=== PATIENT | male | born 1990 | race Caucasian/White ===

== ENCOUNTER 2018-12-29 09:17 | Inpatient (IN) | payer OTHER ==
[~2018-12-29] VITALS: Ht 182.9 cm; Wt 68.2 kg
[2018-12-29] MEDS ORDERED: HYDROCODON-ACE1 EA10 PO (09:29)
--- NOTE | 2018-12-29 10:44 | MORECARE ---
CASE MANAGEMENT DISCHARGE SUMMARY PATIENT: AURELIANO NAVARRO UNIT: [id number] ADM DATE: 12/29/18 AGE: 28 : [birth year] SEX: M ROOM/BED: D.2231 AUTHOR: JENIFFER LEE PHYSICIAN: REFERRING PHYSICIAN: LOWELL RUSH MD DATE OF SERVICE: 12/29/18 Discharge Plan Patient Name: AURELIANO NAVARRO [facility] : 1990 Planned Disposition: Home Anticipated Discharge Date: 12/31/18 Discharge Date: Expected LOS: 2 Initial Reviewer: [email or web address] Initial Review Date: 12/29/2018 Generated: 12/29/18 11:44 am DCPIA - Discharge Planning Initial Assessment Updated by [email or web address]: Lory Carrera on 12/29/18 10:40 am * Is the patient Alert and Oriented? Yes * How many steps to enter\exit or inside your home? * PCP does not have a pcp * Pharmacy [facility] in [place] * Preadmission Environment Home with Family * ADLs Independent * Equipment None * List name and contact numbers for known caregivers / representatives who currently or will assist patient after discharge: Ruth Navarro - - [phone] * Verbal permission to speak to the caregivers and representatives has been obtained from the patient. Yes * Community resources currently utilized None * Additional services required to return to the preadmission environment? No * Can the patient safely return to the preadmission environment? Yes * Has this patient been hospitalized within the prior 30 days at any hospital? No Patient Name: AURELIANO NAVARRO Page 31641 at 1044 All edits/amendments must be made on the electronic document DICTATION DATE: 12/29/18 1044 HUMAN RESOURCES TEMP: FIORDALIZA 12/29/18 1044 RPT#: [id number] DC DATE: STATUS: ADM IN [facility] [address] [place] [address] END OF REPORT
--- NOTE | 2018-12-29 11:09 | MORECARE ---
CASE MANAGEMENT DISCHARGE SUMMARY PATIENT: AURELIANO NAVARRO UNIT: [id number] ADM DATE: 12/29/18 AGE: 28 : [birth year] SEX: M ROOM/BED: D.2231 AUTHOR: JENIFFER LEE PHYSICIAN: REFERRING PHYSICIAN: LOWELL RUSH MD DATE OF SERVICE: 12/29/18 Discharge Plan Patient Name: AURELIANO NAVARRO Facility: [facility]:[place] : 1990 Planned Disposition: Home Anticipated Discharge Date: 12/31/18 Discharge Date: Expected LOS: 2 Initial Reviewer: [email or web address] Initial Review Date: 12/29/2018 Generated: 12/29/18 12:08 pm Comments DCP- Discharge Planning Updated by [email or web address]: Lory Carrera on 12/29/18 10:[address] Patient Name: AURELIANO NAVARRO Admission Status: ER Accout number: [id number] Admission Date: 12-29-2018 : 1990 Admission Diagnosis: Attending: ASIA RUSH Current LOS: 1 Anticipated DC Date: 12-31-2018 Planned Disposition: Home with . Primary Insurance: UNINSURED DISCOUNT PLAN Discharge Planning Comments: CM met with patient to complete initial dc planning assessment. CM educated patient on the CM role and verbal consent given by patient to complete assessment. CM verified patient's address, phone number, and emergency contact phone numbers. Patient lives at home with his and 8 mth old son. At discharge patient plans to return home and feels this is a safe discharge. CM discussed availability of home health, rehab services, and medical equipment. Patient denied known discharge needs at this time. Patient reports his brother will transport him home at time of discharge. CM will continue to follow and will assist as needed with dc plans/needs. Aquatics Instructor: Lory Carrera RN, [facility] DCPIA - Discharge Planning Initial Assessment Updated by [email or web address]: Lory Carrera on 12/29/18 10:40 am * Is the patient Alert and Oriented? Yes * How many steps to enter\exit or inside your home? * PCP does not have a pcp * Pharmacy [facility] * Preadmission Environment Home with Family * ADLs Independent * Equipment None * List name and contact numbers for known caregivers / representatives who currently or will assist patient after discharge: Ruth Navarro - - [phone] * Verbal permission to speak to the caregivers and representatives has been obtained from the patient. Yes * Community resources currently utilized None * Additional services required to return to the preadmission environment? No * Can the patient safely return to the preadmission environment? Yes * Has this patient been hospitalized within the prior 30 days at any hospital? No Last DP export: 12/29/18 9:44 a Patient Name: AURELIANO NAVARRO Page 32546 at 1109 All edits/amendments must be made on the electronic document DICTATION DATE: 12/29/181107 REGISTERED MASSAGE THERAPIST: FIORDALIZA 12/29/181107 RPT#: [id number] [place] DATE: STATUS: ADM IN [facility] [address] [place] [address] END OF REPORT
[2018-12-29 12:44] VITALS: BP 117/74; BMI 20.4
[2018-12-29 15:01] VITALS: Ht 182.9 cm; Wt 68.2 kg
--- NOTE | 2018-12-29 17:30 | NUR ---
SITTING UP IN BED TALKING TO . ALERT AND ORIENTED X4. IV LOCATATED IN RIGHT AC, SALINE LOCK AND DRESSING INTACT. MATHEW CATH IN PLACE WITH 200 ML OF MARTY URINE. STATES PAIN LEVEL IS 10/10 IN THE LT FLANK. PLAN TO GIVE PRN PAIN MED. BED IN THE LOWEST POSITION AND CALL LIGHT WITH IN REACH. CONTINUE WITH PLAN OF CARE.
[2018-12-29 17:33] VITALS: BP 104/56
[2018-12-29 21:14] VITALS: BP 97/53
[2018-12-30 01:27] VITALS: BP 101/57
--- NOTE | 2018-12-30 02:52 | NUR ---
LAYING IN BED SLEEPING. SHOWS NO SIGNS OF DISTRESS. BED IN THE LOWEST POSITION AND CL WITH IN REACH. WILL CONTINUE TO MONITOR.
[2018-12-30 05:05] VITALS: BP 124/60
[2018-12-30 09:10] VITALS: BP 94/65
[2018-12-30 12:03] VITALS: BP 101/56
[2018-12-30 16:39] VITALS: BP 99/61
--- NOTE | 2018-12-30 18:51 | NUR ---
PT RESTING IN BED, ALERT AND ORIENTED. NO C/O PAIN. NO S/S OF ACUTE DISTRESS NOTED. PT DENIES ANY NEEDS AT THIS TIME. CALL LIGHT IN REACH. WILL CONTINUE TO MONITOR.
--- NOTE | 2018-12-30 19:20 | NUR ---
ALERT AND ORIENT X4. IV SITE TO THE LT AC, SALINE LOCK AND DRESSING INTACT. MATHEW IN PLACE WITH CLEAR/ YELLOW URINE. AT THE BEDSIDE. COMPLAINING OF HEADACHE STATING THAT HE NEEDED TO SMOKE. OFFERED PRN PAIN MED AND NICOTINE PATCH, REFUSED. CL WITH IN REACH AND BED IN THE LOWEST POSITION. CONTINUE WITH PLAN OF CARE.
[2018-12-30 20:33] VITALS: BP 108/47
[2018-12-31 00:47] VITALS: BP 151/74
--- NOTE | 2018-12-31 01:40 | NUR ---
RESISTANCE WHEN FLUSHING IV. DC IV TO THE LT AC, CATH INTACT. RESITED 20G IV TO THE RT FOREARM, SALINE LOCK. CONTINUE [facility] PLAN OF CARE.
[2018-12-31 05:10] VITALS: BP 148/64
--- NOTE | 2018-12-31 05:30 | NUR ---
VOICED CONCERN ON MISSING [facility]ET[facility] DUE TO SURGERY THIS MORNIG. NOTIFIED [facility]. ATTEMPTED TO FAX APPROPRIATE PAPERS TO [facility] X2. WILL TRY AGAIN DURING BUSINESS HOURS AND PASS INFO TO ONCOMING SHIFT. COPY OF PAPERS PLACED IN CHART.
--- NOTE | 2018-12-31 07:25 | NUR ---
PT RESTING IN BED, ALERT AND ORIENTED. AT BEDSIDE. NO C/O PAIN. NO S/S OF ACUTE DISTRESS NOTED. IV TO RIGHT FOREARM, SL. SITE PATENT WITHOUT REDNESS OR SWELLING. PT DENIES ANYTHING FURTHER AT THIS TIME. CALL LIGHT IN REACH. WILL CONTINUE TO MONITOR.
--- NOTE | 2018-12-31 07:55 | NUR ---
BILATERAL ARMS DOWN TO SIDE, ROSSANA.
--- NOTE | 2018-12-31 08:33 | NUR ---
OPA IN AIRWAY ON ADMIT
[2018-12-31 09:14] VITALS: BP 118/67
--- NOTE | 2018-12-31 09:20 | OP ---
PATIENT NAME: AURELIANO SAINI MEDICAL RECORD: [id number] :[birth year] LOCATION:D.MS [place]2231 ADMISSION DATE:12/29/18 SURGEON: MOLINA RUSH MD DATE OF OPERATION: 12/29/2018 SURGEON: Molina Rush MD ANESTHESIA: TIVA by Rita Caban CRNA. DIAGNOSIS: Left distal ureteral stone, 4 mm. SPECIMEN: Left ureteral stone. PROCEDURE: Cystoscopy, left retrograde pyelogram, left ureteroscopy and stone extraction, left ureteral stent insertion 6-Palauan x 24 cm with string attached. FINDINGS: Radiodense left distal ureteral 4 mm stone. BLOOD LOSS: None. CLINICAL HISTORY: This is a 28-year-old male, who presented to the [facility] with left flank pain. He has never had kidney stones previously. A CT scan showed a left distal ureteral stone causing proximal hydronephrosis. He was transferred from [facility] to our hospital for management of the stone. I observed him for a couple of days with Flomax expecting him to pass the stone, but he did not pass it. He comes now to have the stone removed by ureteroscopy. He is not allergic to any medications. He was given Ancef carton forming machine tender to the OR. DESCRIPTION OF PROCEDURE: The patient was given IV sedation. We attempted to perform fluoroscopy, but we could not definitely see an obvious stone. He has a lot of constipation also, which makes the visualization difficult. We then placed in the lithotomy position and prepped and draped him. The 21-Palauan cystoscope was used. There was no penile stricture. There was no prostatic obstruction. No bladder tumors were seen. He has single ureteral orifices bilaterally. There was edema of the left ureteral orifice from the nearby stone. I placed an open-ended ureteral catheter into the left ureteral orifice. A retrograde pyelogram was performed and this showed that the stone was in the intramural portion of the ureter. There was hydronephrosis proximal to the stone. A Sensor wire was then placed through the lumen of the ureteral catheter into the renal pelvis. The ureteral catheter was then removed, leaving the Sensor wire in place. Over the wire, we inserted a 21-Palauan x 4-cm ureteral dilation balloon. The balloon was then inflated to 12 atmospheres of pressure for a few seconds and then deflated and removed entirely, leaving the wire in place. We then removed the cystoscope and using a semi-rigid ureteroscope, we identified the stone. The stone was trapped within a 0-tip 1.9-Palauan basket. The stone was then removed entirely. It was sent to pathology for stone analysis. Repeat ureteroscopy showed that there were no further stones in the ureter. We then switched back to the cystoscope. The wire was backloaded onto the cystoscope. Over the wire, we inserted a 6-Palauan x 24 cm ureteral stent. Once the stent was in correct position, the wire was withdrawn entirely. The distal end of the stent was pushed into the bladder using a pusher. The bladder was then emptied through the cystoscope sheath and the scope was removed. The string on the distal end of the stent remains. It was tied to itself in a knot and cut shorter. The patient will be discharged home today. I will see him in followup next week to have the stent removed. OPERATIVE REPORT [id number] AURELIANO SAINI TRANSINT:[id number] Voice Confirmation ID: [id number] DOCUMENT ID: [id number] MOLINA RUSH MD at 0920 CC: [id number] DICTATION DATE: 12/31/18 0835 RECEPTIONIST SCHEDULER: 12/31/18 0847 [facility] IN [facility] [address] [place] [address]
[2018-12-31] MEDS ORDERED: FLOMAX0.4 MG PO (09:43)
[2018-12-31] MEDS ORDERED: HYDROCODON-ACE1 EAC7 PO (09:44)
--- NOTE | 2018-12-31 11:58 | MORECARE ---
CASE MANAGEMENT DISCHARGE SUMMARY PATIENT: AURELIANO NAVARRO UNIT: [id number] ADM DATE: 12/29/18 AGE: 28 : [birth year] SEX: M ROOM/BED: D.2231 AUTHOR: JENIFFER LEE PHYSICIAN: REFERRING PHYSICIAN: LOWELL RUSH MD DATE OF SERVICE: 12/31/18 Discharge Plan Patient Name: AURELIANO NAVARRO Facility: [facility]:[place] : 1990 Planned Disposition: Home Anticipated Discharge Date: 12/31/18 Discharge Date: Expected LOS: 2 Initial Reviewer: [email or web address] Initial Review Date: 12/29/2018 Generated: 12/31/18 12:58 pm Comments DCP- Discharge Planning Updated by [email or web address]: Patricia Leong on 12/31/18 10:[address] Received discharge orders. I was informed by the nurse that patient is refusing to go home. I met with patient and his girlfriend in the room and informed them that this is an outpatient procedure and he has discharge orders for today. Patient states Dr. Rush said he could stay here 24 hours after surgery and I informed him again that Dr. Rush has written order for him to discharge today. He and his girlfriend states they are not leaving because they have dogs at home and want to make sure he's not hurting as much when he leaves. I explained to him that if he does have insurance that he does not meet criteria to stay in the hospital and his stay may not be paid by his insurance company. They both state they understand. I informed his nurse (Yue) that he refuses discharge today. CM will continue to follow and assist with discharge planning/needs. DCP- Discharge Planning Updated by [email or web address]: Lory Carrera on 12/29/18 10:[address] Patient Name: AURELIANO NAVARRO Admission Status: ER Accout number: [id number] Admission Date: 12-29-2018 : 1990 Admission Diagnosis: Attending: ASIA RUSH Current LOS: 1 Anticipated DC Date: 12-31-2018 Planned Disposition: Home with . Primary Insurance: UNINSURED DISCOUNT PLAN Discharge Planning Comments: CM met with patient to complete initial dc planning assessment. CM educated patient on the CM role and verbal consent given by patient to complete assessment. CM verified patient's address, phone number, and emergency contact phone numbers. Patient lives at home with his and 8 mth old son. At discharge patient plans to return home and feels this is a safe discharge. CM discussed availability of home health, rehab services, and medical equipment. Patient denied known discharge needs at this time. Patient reports his brother will transport him home at time of discharge. CM will continue to follow and will assist as needed with dc plans/needs. Campus Security Officer: Lory Carrera RN, [facility] DCPIA - Discharge Planning Initial Assessment Updated by [email or web address]: Lory Carrera on 12/29/18 10:40 am * Is the patient Alert and Oriented? Yes * How many steps to enter\exit or inside your home? * PCP does not have a pcp * Pharmacy [facility] in [place] * Preadmission Environment Home with Family * ADLs Independent * Equipment None * List name and contact numbers for known caregivers / representatives who currently or will assist patient after discharge: Ruth Navarro - [facility] - [phone] * Verbal permission to speak to the caregivers and representatives has been obtained from the patient. Yes * Community resources currently utilized None * Additional services required to return to the preadmission environment? No * Can the patient safely return to the preadmission environment? Yes * Has this patient been hospitalized within the prior 30 days at any hospital? No Last DP export: 12/29/18 10:09 a Patient Name: AURELIANO NAVARRO Page [phone] at 1158 All edits/amendments must be made on the electronic document DICTATION DATE: 12/31/18 1158 WEB DESIGN SPECIALIST: FIORDALIZA 12/31/18 1158 RPT#: [id number] DC DATE: STATUS: ADM IN [facility] [address] [place] [address] END OF REPORT
--- NOTE | 2018-12-31 12:20 | MORECARE ---
CASE MANAGEMENT DISCHARGE SUMMARY PATIENT: AURELIANO NAVARRO UNIT: [id number] ADM DATE: 12/29/18 AGE: 28 : [birth year] SEX: M ROOM/BED: D.2231 AUTHOR: ROSADOC PHYSICIAN: REFERRING PHYSICIAN: LOWELL RUSH MD DATE OF SERVICE: 12/31/18 Discharge Plan Patient Name: AURELIANO NAVARRO Facility: [facility]:[place] : 1990 Planned Disposition: Home Anticipated Discharge Date: 12/31/18 Discharge Date: Expected LOS: 2 Initial Reviewer: [email or web address] Initial Review Date: 12/29/2018 Generated: 12/31/18 1:19 pm Comments DCP- Discharge Planning Updated by [email or web address]: Patricia Leong on 12/31/18 11:[address] I spoke with Dr. Rush and he states patient can discharge home today. I spoke with the patient and he states his friend does not have any gas money to get him home. I priced for a taxi for 2 people and it will be 50 dollars. I have asked Beverly for approval to go to [address] [place] [address] in [place]. CM will continue to follow and assist with discharge planning/needs. DCP- Discharge Planning Updated by [email or web address]: Patricia Leong on 12/31/18 10:[address] Received discharge orders. I was informed by the nurse that patient is refusing to go home. I met with patient and his girlfriend in the room and informed them that this is an outpatient procedure and he has discharge orders for today. Patient states Dr. Rush said he could stay here 24 hours after surgery and I informed him again that Dr. Rush has written order for him to discharge today. He and his girlfriend states they are not leaving because they have dogs at home and want to make sure he's not hurting as much when he leaves. I explained to him that if he does have insurance that he does not meet criteria to stay in the hospital and his stay may not be paid by his insurance company. They both state they understand. I informed his nurse (Yue) that he refuses discharge today. CM will continue to follow and assist with discharge planning/needs. DCP- Discharge Planning Updated by [email or web address]: Lory Carrera on 12/29/18 10:[address] Patient Name: AURELIANO NAVARRO Admission Status: ER Accout number: [id number] Admission Date: 12-29-2018 : 1990 Admission Diagnosis: Attending: ASIA RUSH Current LOS: 1 Anticipated DC Date: 12-31-2018 Planned Disposition: Home with . Primary Insurance: UNINSURED DISCOUNT PLAN Discharge Planning Comments: CM met with patient to complete initial dc planning assessment. CM educated patient on the CM role and verbal consent given by patient to complete assessment. CM verified patient's address, phone number, and emergency contact phone numbers. Patient lives at home with his and 8 mth old son. At discharge patient plans to return home and feels this is a safe discharge. CM discussed availability of home health, rehab services, and medical equipment. Patient denied known discharge needs at this time. Patient reports his brother will transport him home at time of discharge. CM will continue to follow and will assist as needed with dc plans/needs. Belt Maker Helper: Lory Carrera RN, [facility] DCPIA - Discharge Planning Initial Assessment Updated by [email or web address]: Lory Carrera on 12/29/18 10:40 am * Is the patient Alert and Oriented? Yes * How many steps to enter\exit or inside your home? * PCP does not have a pcp * Pharmacy [facility] * Preadmission Environment Home with Family * ADLs Independent * Equipment None * List name and contact numbers for known caregivers / representatives who currently or will assist patient after discharge: Ruth Navarro - - [phone] * Verbal permission to speak to the caregivers and representatives has been obtained from the patient. Yes * Community resources currently utilized None * Additional services required to return to the preadmission environment? No * Can the patient safely return to the preadmission environment? Yes * Has this patient been hospitalized within the prior 30 days at any hospital? No Last DP export: 12/31/18 10:58 a Patient Name: AURELIANO NAVARRO Page 58750 at 1220 All edits/amendments must be made on the electronic document DICTATION DATE: 12/31/18 1219 OFFICE PROFESSIONAL: FIORDALIZA 12/31/18 1219 RPT#: [id number] DC DATE: STATUS: ADM IN [facility] [address] [place] [address] END OF REPORT
[2018-12-31 13:08] VITALS: BP 98/52
--- NOTE | 2018-12-31 14:13 | NUR ---
PT DISCHARGED HOME WITH IN TAXI VIA WHEELCHAIR. DISCONTINUED IV, CATHETER TIP INTACT. WENT OVER DISCHARGE INSTRUCTIONS WITH PT AND SPOUSE, PT VERBALIZED UNDERSTANDING. PT DENIES ANY NEEDS.
--- NOTE | 2019-01-01 16:50 | MORECARE ---
CASE MANAGEMENT DISCHARGE SUMMARY PATIENT: AURELIANO NAVARRO UNIT: [id number] ADM DATE: 12/29/18 AGE: 28 : [birth year] SEX: M ROOM/BED: D.2231 AUTHOR: ROSADOC PHYSICIAN: REFERRING PHYSICIAN: LOWELL RUSH MD DATE OF SERVICE: 01/01/19 Discharge Plan Patient Name: AURELIANO NAVARRO Facility: [facility]:[place] : 1990 Planned Disposition: Home Anticipated Discharge Date: 12/31/18 Discharge Date: 12/31/2018 Expected LOS: 2 Initial Reviewer: [email or web address] Initial Review Date: 12/29/2018 Generated: 01/01/19 5:50 pm Comments DCP- Discharge Planning Updated by [email or web address]: Patricia Leong on 12/31/18 11:[address] I spoke with Dr. Rush and he states patient can discharge home today. I spoke with the patient and he states his friend does not have any gas money to get him home. I priced for a taxi for 2 people and it will be 50 dollars. I have asked Beverly for approval to go to [address] [place] [address] in [place]. CM will continue to follow and assist with discharge planning/needs. DCP- Discharge Planning Updated by [email or web address]: Patricia Leong on 12/31/18 10:[address] Received discharge orders. I was informed by the nurse that patient is refusing to go home. I met with patient and his girlfriend in the room and informed them that this is an outpatient procedure and he has discharge orders for today. Patient states Dr. Rush said he could stay here 24 hours after surgery and I informed him again that Dr. Rush has written order for him to discharge today. He and his girlfriend states they are not leaving because they have dogs at home and want to make sure he's not hurting as much when he leaves. I explained to him that if he does have insurance that he does not meet criteria to stay in the hospital and his stay may not be paid by his insurance company. They both state they understand. I informed his nurse (Yue) that he refuses discharge today. CM will continue to follow and assist with discharge planning/needs. DCP- Discharge Planning Updated by [email or web address]: Lory Carrera on 12/29/18 10:[address] Patient Name: AURELIANO NAVARRO Admission Status: ER Accout number: [id number] Admission Date: 12-29-2018 : 1990 Admission Diagnosis: Attending: ASIA RUSH Current LOS: 1 Anticipated DC Date: 12-31-2018 Planned Disposition: Home with . Primary Insurance: UNINSURED DISCOUNT PLAN Discharge Planning Comments: CM met with patient to complete initial dc planning assessment. CM educated patient on the CM role and verbal consent given by patient to complete assessment. CM verified patient's address, phone number, and emergency contact phone numbers. Patient lives at home with his and 8 mth old son. At discharge patient plans to return home and feels this is a safe discharge. CM discussed availability of home health, rehab services, and medical equipment. Patient denied known discharge needs at this time. Patient reports his brother will transport him home at time of discharge. CM will continue to follow and will assist as needed with dc plans/needs. Youth Accommodation Support Worker: Lory Carrera RN, [facility] DCPIA - Discharge Planning Initial Assessment Updated by [email or web address]: Lory Carrera on 12/29/18 10:40 am * Is the patient Alert and Oriented? Yes * How many steps to enter\exit or inside your home? * PCP does not have a pcp * Pharmacy [facility] * Preadmission Environment Home with Family * ADLs Independent * Equipment None * List name and contact numbers for known caregivers / representatives who currently or will assist patient after discharge: Ruth Navarro - - [phone] * Verbal permission to speak to the caregivers and representatives has been obtained from the patient. Yes * Community resources currently utilized None * Additional services required to return to the preadmission environment? No * Can the patient safely return to the preadmission environment? Yes * Has this patient been hospitalized within the prior 30 days at any hospital? No Last DP export: 12/31/18 11:20 a Patient Name: AURELIANO NAVARRO Page 36515 at 1650 All edits/amendments must be made on the electronic document DICTATION DATE: 01/01/19 1650 MARKETING COMMUNICATIONS LEADER: FIORDALIZA 01/01/19 1650 RPT#: [id number] DC DATE:12/31/18 STATUS: DIS IN [facility] [address] [place] [address] END OF REPORT
== END 2018-12-31 14:15 | disposition home or self-care (01) | DRG 661 ==
LOC: D.ER 09:17 → D.MS 10:27
PROVIDERS: ADMIT Urology; ATTEND Urology
PROC: 0TC78ZZ Extirpation of Matter from Left Ureter, Via Natural or Artificial Opening Endoscopic (ICD-10-PCS; principal; 2018-12-29)
PROC: 0T778DZ Dilation of Left Ureter with Intraluminal Device, Via Natural or Artificial Opening Endoscopic (ICD-10-PCS; 2018-12-29)
DX: N20.0 Calculus of kidney (principal)